=== PATIENT | male | born 1930 | race Caucasian/White ===

== ENCOUNTER 2019-08-04 10:43 | Inpatient (IN) | payer OTHER ==
[2019-08-04] MEDS ORDERED: NS 0.9% 1000 ML** 1,000 ML IV ONE ×2 (10:46→11:30)
--- NOTE | 2019-08-04 10:53 | ED ---
Neurological HPI - HPI Summary HPI Summary: This patient is an 88 year old male brought in by EMS presenting to [facility] with a chief complaint of possible stroke. He was with his niece when she noticed he was having garbled, incomprehensible speech, per EMS. They also report a right- sided facial droop. His last known normal is 30 minutes FITTER UP. Mychal richards called at 1038, patient arrived to ED at 1044, seen by provider at 1045, patient taken to CT at 1046. Per EMS, Pt was in AFIB but it is not known if he is currently on blood thinners or if he has a Hx of AFIB. This medical record is a level 5 caveat due to altered mental status. - History of Current Complaint Stated Complaint: MYCHAL AVALOS Time Seen by Provider: 08/04/19 10:46 Hx Obtained From: EMS Hx From Patient Unobtainable Due To: Altered Mental Status Onset/Duration: Started minutes ago Character: Impaired Speech - Allergy/Home Medications Allergies/Adverse Reactions: Allergies Allergy/AdvReac Type Severity Reaction Status Date / Time No Known Allergies Allergy Verified 08/04/19 11:36 PMH/Surg Hx/FS Hx/Imm Hx - Additional Comments History Additional Comments: This PMH is a level 5 caveat due to altered mental status. Review of Systems - ROS Summary Review of Systems Summary: This ROS is level 5 caveat due to altered mental status Neurological: Other - Right-sided facial droop Positive: Slurred Speech All Other Systems Reviewed And Are Negative: No Physical Exam - Summary Physical Exam Summary: Constitutional: Well-developed, Well-nourished, Alert. (-) Distressed Skin: Warm, Dry HENT: Normocephalic; Atraumatic Eyes: Conjunctiva normal Neck: Musculoskeletal ROM normal neck. (-) JVD, (-) Stridor, (-) Tracheal deviation Cardio: Rhythm irregularly irregular Heart sounds normal; Intact distal pulses; The pedal pulses are 2+ and symmetric. Radial pulses are 2+ and symmetric. (-) Murmur Pulmonary/Chest wall: Effort normal. (-) Respiratory distress, (-) Wheezes, (-) Rales Abd: Soft. (-) Tenderness, (-) Distension, (-) Guarding, (-) Rebound Musculoskeletal: (-) Edema Lymph: (-) Cervical adenopathy Neuro: Alert. Strength normal, Cranial nerves II-XII are grossly intact. (-) Dysmetria, (-) Nystagmus, (-) Ataxia by finger to nose testing. Psych: Mood and affect Normal Triage Information Reviewed: Yes Vital Signs On Initial Exam: Temp Pulse Resp BP Pulse Ox 98.1 F 52 16 181/87 97 08/04/19 11:00 08/04/19 11:00 08/04/19 11:00 08/04/19 11:00 08/04/19 11:00 Vital Signs Reviewed: Yes Completion Of Physical Exam Limited Due To: Altered Mental Status Procedures - Sedation Patient Received Moderate/Deep Sedation with Procedure: No Diagnostics - Laboratory Result Diagrams: 08/04/19 10:59 08/04/19 10:59 Lab Statement: Any lab studies that have been ordered have been reviewed, and results considered in the medical decision making process. - Radiology CXR Radiology Interpretation Completed By: Radiologist Summary of Radiographic Findings: Cardiomegaly. No evidence for acute findings. ED Provider has reviewed this report. - CT Brain CT Interpretation Completed By: Radiologist Summary of CT Findings: Acute left frontal lobe infarct with suspected hyperdense M2 segment of the left MCA. Attention on CTA. No hemmorhage of mass effect. ED Provider has reviewed this report. Head CTA CT Interpretation Completed By: Radiologist Summary of CT Findings: 1. Acute left frontal lobe infarct with no hemorrhage or mass effect. 2. Thromboembolic occlusion of a prominent M2 branch fo the left MCA as above. 3. Either adherent thrombus or soft plaque results in 50% senosis in the cavernous. ED Provider has reviewed this report. - EKG 1109 Cardiac Rate: Bradycardia - 44 BPM EKG Rhythm: Atrial Fibrillation Summary of EKG Findings: LBBB. Dr. Vick has reviewed and interpreted this EKG. NIH Scale - NIH Scale Level of Consciousness: Alert/Keenly Responsive Ask Patient the Month and His/Her Age: Neither Correct/Aphasic Ask Pt to Open/Close Eyes and Delivery Table Feeder/Release Non-Paretic Hand: Both Correctly Best Gaze (Only Horizontal Eye Movement): Normal Visual Field Testing: No Visual Loss Facial Paresis-Pt to Smile & Close Eyes or Grimace Symmetry: Partial Paralysis Motor Function - Right Arm: No Drift-Holds 10 Seconds Motor Function - Left Arm: No Drift-Holds 10 Seconds Motor Function - Right Leg: No Drift-Holds 10 Seconds Motor Function - Left Leg: No Drift-Holds 10 Seconds Limb Ataxia-Must be out of Proportion to Weakness Present: Absent Sensory (Use Pinprick to Test Arms/Legs/Trunk/Face): Normal Best Language (Describe Picture, Name Items): Severe Aphasia Dysarthria (Read Several Words): Normal Extinction and Inattention: No Abnormality Total Score: 6 Course/Dx - Course Course Of Treatment: This patient is an 88 year old male brought in by EMS presenting to [facility] with a chief complaint of possible stroke. His last known normal is 30 minutes FITTER UP. Mychal richards called at 1038, patient arrived to ED at 1044, seen by provider at 1045, patient taken to CT at 1046. Neurologist Dr. Fernandez saw the patient in the ED at 10:55 and recommended TPA if renal functions are within normal limits and if it can be proven the patient is not taking anticoagulants. His son arrived in the ED and confirmed he does not take anticoagulants. Brain CT reveals acute left frontal lobe infarct with suspected hyperdense M2 segment of the left MCA. Attention on CTA. No hemmorhage of mass effect. Bloodwork is unremarkable except MCH is 1.1 H. Coagulation reveals INR 1.28 H, APTT 40.3 H. Chemistry shows BUN 34 H, Creatinine 1.43 H, BUN/ Creatinine Ratio 23.8 H, Glucose 110 H, Alkaline Phosphatase 109 H. EKG at 1109 showed AFIB with LBBB at 44 BPM. NIH score of 6. TPA was administered. 1. Acute left frontal lobe infarct with no hemorrhage or mass effect. 2. Thromboembolic occlusion of a prominent M2 branch fo the left MCA as above. 3. Either adherent thrombus or soft plaque results in 50% senosis in the cavernous. Dr. Davies, Hospitalist, accepted the patient for admission to the ICU. This plan was discussed with the patient and he was agreeable with this plan. - Diagnoses Provider Diagnoses: Acute CVA (cerebrovascular accident), Afib Discharge ED - Sign-Out/Discharge Documenting (check all that apply): Patient Departure - Admission - Discharge Plan Condition: Stable Disposition: ADMITTED TO [facility] - Attestation Statements Document Initiated by Hector: Yes Documenting Scribe: Genaro Dong Provider For Whom Hector is Documenting (Include Credential): Pedro Vick, Scribe Attestation: IGenaro, scribed for Pedro Vick, DO on 08/04/19 at 1238. Status of Scribe Document: Ready
[2019-08-04] MEDS ORDERED: Alteplase* 100 MG VIAL ONE (10:56)
[2019-08-04 11:09] LABS: ABS Basophils 0.1 10^3/ul (0-0.2); ABS Eosinophils 0.2 10^3/ul (0-0.6); ABS Lymphocytes 1.1 10^3/ul (1.0-4.8); ABS Monocytes 1.1 10^3/ul (0-0.8); ABS Neutrophils 4.4 10^3/ul (1.5-7.7); Eosinophil % 2.8 %; Hematocrit 42 % (42-52); Lymphocyte % 16.4 %; Mean Corpuscular HGB Conc 33 g/dL (31-36); Mean Corpuscular Hemoglobin 28 pg (27-31); Mean Corpuscular Volume 85 fL (80-94); Mean Platelet Volume 7.9 fL (7.4-10.4); Nucleated Red Blood Cells % 0.1; Platelet Count 169 10^3/uL (150-450); Red Blood Count 4.95 10^6 /uL (4.18-5.48); Red Cell Distribution Width 15 % (10-15); White Blood Count 6.9 10^3/uL (3.5-10.8)
[2019-08-04 11:18] LABS: INR 1.28 (0.82-1.09)
[2019-08-04 11:19] LABS: Activated Partial Thrombo Time 40.3 seconds (26.0-38.0)
[2019-08-04] MEDS ORDERED: ALTEPLASE IV ONE ×2 (11:22)
[2019-08-04 11:23] LABS: Albumin 3.7 g/dL (3.2-5.2); Albumin/Globulin Ratio 1.2 (1-3); BUN/Creatinine Ratio 23.8 (8-20); Calcium 9.4 mg/dL (8.6-10.3); EGFR African American 56.3 (>60); EGFR Non-African American 46.6 (>60); HDL Cholesterol 23.8 mg/dL; Potassium 4.6 mmol/L (3.5-5.0); Total Bilirubin 0.6 mg/dL (0.2-1.0); Total Protein 6.7 g/dL (6.4-8.9)
[2019-08-04 11:24] LABS: Troponin I 0.01 ng/mL (<0.03)
[2019-08-04] MEDS ORDERED: Iodixanol* (CONTRAST) 320 MG/ML 100 ML SDV IV ONE (11:48)
--- NOTE | 2019-08-04 12:45 | CONS ---
NEUROLOGY CONSULTATION NOTE: DATE OF CONSULT: 08/04/19 LOCATION: He is in the emergency room. REFERRING PROVIDER: Dr. Pedro Vick. CHIEF COMPLAINT: Unresponsiveness, code dean. HISTORY OF PRESENT ILLNESS: Radna Sesay is an 88-year-old right-handed man who was visiting his "[id number]" at about 10:10 this morning when he became unresponsive. The history is from the him tech who brought him in. His last known well was, therefore, 10:10 this morning. He was found by the him tech upon arrival to be mute. They saw evidence of a right facial droop. He was brought in to the emergency room and I first saw him in the CT scanning room. He had evidence of a mild flattening of the right nasolabial fold and his eyes would open and he would follow some commands, but he would not produce any words whatsoever nor attempt to speak. He had a CT scan of the brain, which I reviewed personally and which was interpreted by Dr. Newsome as showing an acute left frontal infarct with suspected hyperdense sign in the left M2 segment of the middle cerebral artery. There is no hemorrhage or mass effect. I reviewed the images and I agree. He was noted to be in atrial fibrillation by the him tech when they first found him and he has continued to be in atrial fibrillation here in the emergency room. We do not have any medical records, but there are several family members present and I also spoke with the [id number] who is a nurse on the phone. He gets all of his care at the [facility] in [place]. According to his son, there is no prior history of stroke. He does have a history of a coronary stent and he is apparently on an antihypertensive that no one knows the name of. His family says he tends to determine whether or not to take medication on his own and tends to minimize medications. They think that he is probably only taking his antihypertensive medication. The patient does not believe he has ever been diagnosed as having atrial fibrillation nor that he has ever been on anticoagulants. The patient later in the evaluation was able to nod negatively to one of his family members, a nurse, that he is not taking any blood thinners. There is no history of hemorrhaging or head trauma according to my question of his son. There is no history of epilepsy. PHYSICAL EXAM: On physical examination, he is in atrial fibrillation with heart rates generally running in the 50s, but sometimes as low as the 40s. His blood pressure was fluctuating between 180 and 190 systolic over 80 to 90 diastolic during his emergency room evaluation. On neurological exam, he was mute initially, but ultimately with repeated attempts, he would produce single-word answers and tend to perseverate. He would follow commands reliably. NIH Stroke Score is 9. He scored 1 on level of consciousness, 2 on level of consciousness questions, 1 on facial palsy, 3 on best language, 2 on dysarthria. Plantar responses were flexor bilaterally. He responded to nasal tickle weakly bilaterally. He responded to visual threat bilaterally, but I could not get him to answer questions for double simultaneous stimulation or other visual field testing besides visual threat. DIAGNOSTIC STUDIES/LAB DATA: Laboratory data back so far includes a normal CBC including platelet count 169,000, INR is 1.28, and PTT is borderline elevated at 40.3. These values came back after a tPA order was put in. His chemistry is notable for a BUN of 34 and a creatinine of 1.43. There are no prior evaluations to compare it to. Chemistry profile was otherwise normal other than a presumably nonfasting glucose of 110. Cholesterol is 134 and LDL 72. IMPRESSION AND PLAN: Impression is that of a left hemisphere middle cerebral artery cerebrovascular event. He is mute and has an NIH score of 9 to the best of my assessment. He is reportedly not on any anticoagulants, but he does have a mildly elevated INR for unclear reasons. TPA is currently infusing. A CT angiogram of the brain has been ordered next. Depending upon the results, we will consult with the [facility]'s Stroke Team if it looks like he might be an endovascular candidate. The risks and benefits of tPA were discussed with his son including the risk of serious bleeding and the potential benefit of improved outcome from ischemic stroke. I will continue to follow him along with you. [id number]/[facility] #: [id number] ADDENDUM TO NEUROLOGY CONSULTATION: Since last dictation, Mr. Sesay's language is considerably improved. In fact, he was speaking to his niece on the phone when I went in to double check on him. His speech is still dysarthric and he still has some mild aphasia. He no longer has facial weakness. I estimate his NIH stroke scale as 1. I reviewed his CT angiogram in clinical update on exam with [facility]. They felt that with his significant clinical improvement and the findings on a CT angiogram showing perhaps distal M2 lesions that he is not an endovascular candidate. I discussed the update with Dr. Vick, who we contact the hospitalist service for admission to the intensive care unit to follow the protocol for stroke patients who have received tPA. He should not receive antiplatelet therapy or other anticoagulants for 24 hours from his tPA and not until a followup CT scan at the 24 hour marcellus is performed and is free of hemorrhage or other contraindications to anticoagulation. He will need an MRI scan of the brain as well as telemetry, an echocardiogram, and probably Cardiology consultation. [id number]/[facility] #: [id number] SAMI
--- NOTE | 2019-08-04 13:27 | CONS ---
NEUROLOGY CONSULTATION: ADDENDUM: Since last dictation, Mr. Sesay's language is considerably improved. In fact, he was speaking to his niece on the phone when I went in to double check on him. His speech is still dysarthric and he still has some mild aphasia. He no longer has facial weakness. I estimate his NIH stroke scale as 1. I reviewed his CT angiogram in clinical update on exam with [facility]. They felt that with his significant clinical improvement and the findings on a CT angiogram showing perhaps distal M2 lesions that he is not an endovascular candidate. I discussed the update with Dr. Vick, who we contact the hospitalist service for admission to the intensive care unit to follow the protocol for stroke patients who have received tPA. He should not receive antiplatelet therapy or other anticoagulants for 24 hours from his tPA and not until a followup CT scan at the 24 hour marcellus is performed and is free of hemorrhage or other contraindications to anticoagulation. He will need an MRI scan of the brain as well as telemetry, an echocardiogram, and probably Cardiology consultation. [id number]/[facility] #: [id number] SAMI
[2019-08-04 13:55] LABS: Urine Appearance Cloudy; Urine Bilirubin Negative (Negative); Urine Blood Negative (Negative); Urine Color Yellow; Urine Glucose Negative (Negative); Urine Ketones Negative (Negative); Urine Nitrite Negative (Negative); Urine Protein 2+(100 mg/dL) (Negative); Urine Urobilinogen Negative (Negative)
[2019-08-04 14:04] LABS: Urine Bacteria 1+ (Absent); Urine Red Blood Cell Absent (Absent); Urine White Blood Cell 3+(>20/hpf) (Absent)
[2019-08-04] MEDS: niCARdipine 0.1MG/ML IVPREMIX* 20 MG/200 ML BAG IV SCH ×3 (14:35→22:18)
[2019-08-04] MEDS ORDERED: Colchicine* 0.6 MG TAB PO SCH (15:00)
--- NOTE | 2019-08-04 16:02 | CONSULT ---
Subjective Date of Service: 08/04/19 Interval History: Admission Date: 08/04/19 Consult date 08/04/2019 Service: Nuclear Medicine Technologist CC: Change in speech Reason for consult: Atrial fibrillation, ischemic stroke HISTORY OF PRESENT ILLNESS: Mr. Sesay is an 88-year-old man with history as below who gets his healthcare through the [facility] system. He ambulates with a walker due to gait imbalance but has no chest discomfort, dyspnea or syncope. He was diagnosed with atrial fibrillation over a year ago and declined anticoagulation at that time. He is now admitted with garbled speech and right sided facial droop and was given TPA. He is now in the ICU. He is hard of hearing but we are otherwise able to have a conversation. Family members including Elizabeth who is a [employer] are at bedside. PAST MEDICAL HISTORY: coronary artery disease, PR, PCI 3 years ago [address] [facility] ? ramus branch hypertension hyperlipidemia, aortic stenosis LBBB uncertain duration PAST SURGICAL HISTORY: trigger finger release PCI 2016 FAMILY HISTORY: Noncontributory SOCIAL HISTORY: . lives alone. son and [id number] close by (they are present) No tobacco No EtOH. No illicit drug use. His healthcare proxy is Bruce Sesay , his son. Medications Active Medications: Amlodipine Besylate (Norvasc Tab*) 10 mg PO DAILY [facility] Atorvastatin Calcium (Lipitor*) 40 mg PO 1700 NADIA Carvedilol (Coreg Tab*) 25 mg PO BID [facility] Colchicine (Colcrys*) 1.2 mg PO ONCE [facility] Nicardipine/Sodium Chloride (Cardene 0.1mg/Ml Ivpremix*) 20 mg in 200 mls @ 0 mls/hr IV PER RATE [facility]; Protocol Last Admin: 08/04/19 14:35 Dose: 50 mls/hr Home Medications: Amlodipine Besylate [Norvasc] 10 mg PO DAILY 08/04/19 [History Confirmed ] Aspirin EC TAB* [Ecotrin EC Low Dose 81 MG*] 81 mg PO DAILY 08/04/19 [History Confirmed 08/04/19] Carvedilol TAB* [Coreg TAB*] 25 mg PO BID 08/04/19 [History Confirmed 08/04/19] Colchicine* [Colcrys*] 1.2 mg PO ONCE 08/04/19 [History Confirmed 08/04/19] Minerin Cream* [Eucerin Cream*] 1 applic TOPICAL DAILY 08/04/19 [History Confirmed 08/04/19] Vit C/E/Zn/Coppr/Lutein/Zeaxan [Preservision Areds 2 Softgel] 1 each PO BID [History Confirmed 08/04/19] Review of Systems - Measurements Intake and Output: Intake and Output Last 24 Hours 08/02/19 08/03/19 08/04/19 08/05/19 06:59 06:59 06:59 06:59 Intake Total 587.6 Balance 587.6 Weight 215 lb Intake: IV Fluids 587.6 - Review of Systems Constitutional Symptoms: Negative: Weight Gain, Weight Loss Dermatology: Negative: Rash, Skin Lesions, Skin Lumps HEENT: Negative: Change in Hearing, Vertigo Eyes: Negative: Change in Vision, Double Vision Thyroid: Negative: Palpitations, Weight Loss, Weight Gain Pulmonary: Negative: Cough, Sputum, Hemoptysis, Respiratory Distress Cardiology: Negative: Chest Pain, Shortness of Breath, Palpitations, Swelling of Ankles, Edema, Syncope, Claudication Gastroenterology: Negative: Blood in Stools, Haematemesis, Melena Genital - Urinary: Negative: Dysuria, Hematuria Musculoskeletal: Negative: Joint Pain, Joint Stiffness Endocrinology: Negative: Polydipsia, Polyuria Hematologic/Lymphatic: Positive: Use of Antiplatelet Drugs Negative: Use of Anticoagulant Neurology: Positive: Hx of Stroke\TIA Psychiatry: Negative: Unusual Anxiety, Suicidal Ideation Allergic/Immunologic: Negative: Hx HIV, Immunocompromise Review of Systems Statement: All other review of systems negative, unless stated above. Objective Vital Signs: Temp Pulse Resp BP Pulse Ox 97.2 F 55 18 154/71 95 08/04/19 14:22 08/04/19 15:16 08/04/19 15:16 08/04/19 15:16 08/04/19 15:16 Oxygen Devices in Use Now: None Appearance: nad, pleasant Ears/Nose/Mouth/Throat: Clear Oropharnyx Neck: NL Appearance and Movements; NL JVP, Trachea Midline Respiratory: Symmetrical Chest Expansion and Respiratory Effort, Clear to Auscultation Cardiovascular: - - irregularly irregular, 3/6 systolic murmur with soft singular s2 Abdominal: NL Sounds; No Tenderness; No Distention Extremities: No Edema Skin: No Rash or Ulcers Neurological: Alert and Oriented x 3 Laboratory Results: 08/04/19 10:59 08/04/19 10:59 INR (Anticoag Therapy) 1.28 (0.82-1.09) H 08/04/19 10:59 APTT 40.3 seconds (26.0-38.0) H 08/04/19 10:59 Total Bilirubin 0.60 mg/dL (0.2-1.0) 08/04/19 10:59 AST 14 U/L (13-39) 08/04/19 10:59 ALT 12 U/L (7-52) 08/04/19 10:59 Alkaline Phosphatase 109 U/L (34-104) H 08/04/19 10:59 Total Protein 6.7 g/dL (6.4-8.9) 08/04/19 10:59 Albumin 3.7 g/dL (3.2-5.2) 08/04/19 10:59 Globulin 3.0 g/dL (2-4) 08/04/19 10:59 Albumin/Globulin Ratio 1.2 (1-3) 08/04/19 10:59 Triglycerides 189 mg/dL 08/04/19 10:59 Cholesterol 134 mg/dL 08/04/19 10:59 LDL Cholesterol 72 mg/dL 08/04/19 10:59 HDL Cholesterol 23.8 mg/dL 08/04/19 10:59 08/04/19 10:59 Troponin I 0.01 Diagnostic Imaging: Exam Date: 08/04/19 CTA HEAD/NECK IMPRESSION: 1. Acute left frontal lobe infarct with no hemorrhage or mass effect. 2. Thromboembolic occlusion of a proximal M2 branch of the left MCA as above 3. Either adherent thrombus or soft plaque results in 50% stenosis in the cavernous segment of the right ICA. The embolic potential of this finding is unclear. 4. Intracranially extra cranial atherosclerotic disease. Exam Date: 08/04/19 MRI BRAIN W/O IMPRESSION: 1. Late acute to early subacute left MCA infarct burden as above. No mass effect or associated hemorrhage. 2. Mild chronic small vessel ischemic disease is likely. 3. Mild cerebral volume loss. Transthoracic Echocardiogram Study Date: 08/04/2019 Conclusions Summary: - Left ventricle: The cavity size is normal. Wall thickness is mildly to moderately increased. Systolic function is normal. The estimated ejection fraction is 55-60%. Wall motion is normal; there are no regional wall motion abnormalities. - Right ventricle: The cavity size is normal. Systolic function is normal. Systolic pressure is mildly increased. - Ventricular septum: The interventricular septum appears dyssynchronous consistent with left bundle branch block. - Aortic valve: The peak systolic velocity is 3.9 m/sec. Patient is in atrial fibrillation at time of study and velocity/gradient profiles are the highest and not average obtained. The mean systolic gradient is 37.0 mm Hg. The valve area by the velocity-time integral method is 0.57 cm^2. EKG Data: ekg on admission afib 44 bpm, lbbb Assessment/Plan 1. Acute ischemic large vessel MCA CVA - s/p TPA - while on aspirin - high likely secondary to # 2 2. chronic atrial fibrillation - rate controlled with slow rates - not on anticoagulation 3. CAD/PR/PCI 4. Aortic stenosis - asymptomatic, LVEF normal 5. LBBB - Decrease coreg from 25 to 12.5 mg po bid given slow heart rates (ordered) - Once ok from a neurologic standpoint, would start jail anticoagulation ( such as eliquis 5 mg po bid if creatinine stays stable or improves) I would use this in addition to aspirin (at least in the short term) unless intracranial bleeding risk would felt excessively high with this combination - Discussed with Yuliya Shields NP and [facility]. Thank you for allowing me to participate in the cardiovascular care of this patient. Please do not hesitate to contact me with questions or concerns.
--- NOTE | 2019-08-04 16:38 | HP ---
Amended report to enter cosigning physician. CC: SEAN; Dr. Suresh Davies; Dr. Michael Fernandez, Neurology; Dr. Anival Davies, Cardiology* ADMISSION HISTORY AND PHYSICAL: DATE OF ADMISSION: 08/04/19 PRIMARY CARE PROVIDER: The [facility]. ATTENDING FOR THIS ADMISSION: Dr. Suresh Davies, ICU sawmill production worker* (dictated by Jair Shields NP). CHIEF COMPLAINT: Incomprehensible speech. HISTORY OF PRESENT ILLNESS: Mr. Sesay is a very pleasant 88-year-old male patient, who was at home with his niece when she noticed that he was started having garbled speech and also some right-sided facial droop. His last known normal was 30 minutes prior to arrival in the emergency department. He was brought in by EMS services. A code dean was called at 10:38 this morning. The patient arrived in the emergency department at 10:44. The patient was taken to CAT scan at 10:46 a.m. He was noted to be within a window for tPA administration. He was seen by Dr. Fernandez in the ED. His NIH Stroke Scale at that time was a total score of 6. He was noted to be in atrial fibrillation, which was new. His CT did appear to show an acute left frontal lobe infarct with no hemorrhage or mass effect and then his CTA showed a thromboembolic occlusion of the prominent M2 branch of the left MCA. The patient was administered tPA in the emergency department. His primary symptom of dysarthria did start to subside. The patient was able to start to communicate more clearly. The sawmill production worker service was contacted for admission as the patient was post tPA administration. PAST MEDICAL HISTORY: Significant for coronary artery disease, hypertension, hyperlipidemia, and myocardial infarction. PAST SURGICAL HISTORY: Significant for trigger finger release and coronary artery stenting in 2017 to the ramus, which was performed at [facility] in [place]. HOME MEDICATIONS: Include: 1. Amlodipine 10 mg p.o. daily. 2. Aspirin 81 mg daily. 3. Carvedilol 25 mg p.o. b.i.d. 4. Colchicine 1.2 mg p.o. once daily. 5. Eucerin cream topical daily. 6. PreserVision AREDS 2 soft gels 1 tablet p.o. 2 times a day. 7. Per the patient's granddaughter, he is also supposed to be taking Lipitor daily, but he has been noncompliant with this medication. FAMILY HISTORY: No noted family history as reported by the patient's granddaughter. The patient is difficult to communicate with at this time, but he is not reporting any history. SOCIAL HISTORY: The patient is . He lives alone. He has his son and [id number] very close by. He denies history of smoking. No EtOH. No illicit drug use. His healthcare proxy is Bruce Sesay, his son. REVIEW OF SYSTEMS: The patient denies any headache. No blurry vision. He is obviously frustrated with his word searching, but he denies any shortness of breath. No chest pain. No nausea, no vomiting. No muscle weakness or general fatigue. No arthralgias or myalgias, and no further constitutional complaints. PHYSICAL EXAMINATION GENERAL: Reveals a well-nourished older gentleman, in no acute distress. VITAL SIGNS: Blood pressure 175/88, heart rate 53, respiratory rate 19, O2 saturation 97% on room air with a temperature of 97.2. HEENT: The patient is atraumatic, normocephalic. PERRLA. Nonicteric sclerae. Extraocular movements are intact. Oral mucosa is somewhat dry. He wears dentures. Tongue is midline. NECK: Supple, nontender. No JVD noted. No thyromegaly appreciated. LUNGS: Clear bilaterally to auscultation with no wheezing, rhonchi, or rales. CARDIOVASCULAR: S1, S2 present. Rate is irregular. There is a holosystolic murmur noted, grade 3/6. He is bradycardic. ABDOMEN: Soft, nontender, nondistended. Positive bowel sounds in all 4 quadrants. : Deferred. MUSCULOSKELETAL: There is no clubbing, no cyanosis, and no edema. He has +2 distal pulses palpable. NEUROLOGIC: He is dysarthric and word searching. He is otherwise able to follow commands. Gross motor and sensation are intact. PSYCHIATRIC: Cooperative and appropriate. The patient is alert and oriented to person and place. He is not able to describe the events leading up to his hospitalization; however, there is some amnesia of the events of the stroke. SKIN: Warm, dry, and intact. DIAGNOSTIC STUDIES/LAB DATA: WBCs 6.9, RBCs 4.95, hemoglobin 14, hematocrit 42 , platelets 169. Sodium 139, potassium 4.6, chloride 108, CO2 of 24, anion gap 7, BUN 34, creatinine 1.43, GFR 46.6, BUN/creatinine ratio 23.8, glucose 110, lactic acid 1.2, calcium 9.4. Total bilirubin 0.60, AST 14, ALT 12, alk phos 109. Troponin 0.01. Total protein 6.7, albumin 3.7, globulin 3.0, albumin/ globulin ratio 1.2. Triglycerides 189, total cholesterol 134, LDL cholesterol 72, HDL cholesterol 23.8. Urinalysis shows 2+ protein, 2+ leukocyte esterase, 3 + wbc's, 1+ bacteria, negative for glucose. Imaging: Initial CT of the brain at 10:46 this morning shows acute left frontal lobe infarct with a suspected hypodense M2 segment of the left MCA. The CTA of the head at 11:07 shows acute left frontal lobe infarct with no hemorrhage or mass effect noted, thromboembolic occlusion of the proximal M2 branch of the left MCA, and either adhered thrombus or soft plaque resulting in 50% stenosis in the cavernous segment of the right ICA. The embolic potential of this finding is unclear. Intracranially extracranial atherosclerotic disease. Chest x-ray at 10:46 this morning shows some cardiomegaly and no evidence for other acute pulmonary findings. IMPRESSION AND PLAN: Mr. Sesay is an 88-year-old male patient who presented with a sudden onset of dysarthria this morning, found to have acute cerebrovascular accident, will be admitted to the ICU post tPA administration. 1. Acute left frontal lobe infarct and thromboembolic occlusion of the proximal M2 branch of the left middle cerebral artery. The patient again has received tPA in the emergency department. He will be monitored for 24 hours in the ICU. He has already been seen by Dr. Fernandez of neurology service. We will obtain an MRI of the brain and an echocardiogram with bubble study of the heart as this does appear to be a thromboembolic event given his new atrial fibrillation, which is undiagnosed. The patient has not been on anticoagulation. He has also been off of his statin and does appear to have atherosclerotic disease. We will hold off on any aspirin or anticoagulation until he is out of the window after his tPA administration. He is high risk for bleed. We will repeat CT scan of the head in 24 hours. In the meantime, we will continue with neurological checks per protocol. I will start him on Lipitor 40 mg daily to start this evening. Continue him on telemetry and continue supportive care. Swallow evaluation study has been placed. For now, we will keep him n.p.o. 2. Hypertension with accelerated hypertension. He has been placed on nicardipine drip. This will be titrated. His blood pressures are in the systolic 170s to 180s. We will place him on nicardipine and restart his home meds tomorrow in anticipation of weaning him down of the nicardipine drip when blood pressures are more stable. 3. Hyperlipidemia. Per the patient's granddaughter, he was not taking his Lipitor. He stated he thought he was allergic to it, but it was likely more that he was having some cramping reaction to it. It will be important for him to stay on statin therapy. I started him on moderate to high dose statin therapy with 40 of Lipitor to start this evening. 4. History of gout. He will be restarted on his colchicine. 5. History of arthritis. This appears to be stable. He can have Tylenol as needed. 6. History of coronary artery disease and stenting. The patient is on carvedilol. This will be continued. We will withhold his aspirin for now. I have consulted Cardiology. Dr. Anival Davies will be seeing the patient. The atrial fibrillation does appear to be new. As stated above, we will be getting an echocardiogram with bubble study to assess his valves. He does have a significant murmur. It is unclear to the degree of which his murmur has progressed from 2017 until now, so this will be noted once we obtain his echocardiogram. 7. For DVT prophylaxis, the patient is high risk for bleeding, but he is also high risk for deep venous thrombosis, he will be placed on SCDs. 8. Code status: Initially, the patient was noted to be a full code; however, it was confirmed with the patient and with his family that he wishes to be a DNR and DNI. The rest of the patient's course will be determined by further diagnostics, laboratories, and any other input from other providers as warranted during this admission. TIME SPENT: Critical care time spent 75 minutes on admission planning. This plan of care has been discussed with Dr. Suresh Davies, the ICU sawmill production worker on this case, and he is in agreement with this plan of care. JAIR SHIELDS, BARGEMAN [id number]/[facility] #: [id number] [facility]
--- NOTE | 2019-08-04 16:49 | ECHO ---
*[facility]* [place] [address] Fax #: [phone] Transthoracic Echocardiogram Patient: Randa Sesay : 1930 Study Date: 08/04/2019 Age: 88 Gender: M HR: 56 bpm Height: 71 in /180.3 cm BSA: 2.17 m^2 Weight: 214.6 lb /97.5 kg BMI: 30 kg/m^2 *Athlete Manager: * Tyra Heredia [facility] *Referring Physician: * Yuliya Shields *Reading Physician: * Anival Davies MD Indications: CVA. History: Risk factors: Hypertension. Labs, prior tests, procedures, and surgery: Catheterization. There was a stenosis which was treated with a stent. Conclusions Summary: - Left ventricle: The cavity size is normal. Wall thickness is mildly to moderately increased. Systolic function is normal. The estimated ejection fraction is 55-60%. Wall motion is normal; there are no regional wall motion abnormalities. - Right ventricle: The cavity size is normal. Systolic function is normal. Systolic pressure is mildly increased. - Ventricular septum: The interventricular septum appears dyssynchronous consistent with left bundle branch block. - Aortic valve: The peak systolic velocity is 3.9 m/sec. Patient is in atrial fibrillation at time of study and velocity/gradient profiles are the highest and not average obtained. The mean systolic gradient is 37.0 mm Hg. The valve area by the velocity-time integral method is 0.57 cm^2. - Ascending aorta: The ascending aorta is mildly dilated at 4.0 cm Recommendations: None prior for comparison at time of interpretation Study data: Transthoracic echocardiogram. Procedure: Transthoracic echocardiography was performed. Image quality was good. A bubble study was performed. Complete 2D, spectral Doppler, and color flow Doppler. Location: ICU Patient status: Inpatient. Patient room number: ICU-09. Rhythm: Atrial fibrillation. Findings Left ventricle: The cavity size is normal. Wall thickness is mildly to moderately increased. Systolic function is normal. The estimated ejection fraction is 55-60%. Wall motion is normal; there are no regional wall motion abnormalities. Left ventricular diastolic function parameters are indeterminate. Right ventricle: The cavity size is normal. Systolic function is normal. Systolic pressure is mildly increased. Ventricular septum: The interventricular septum appears dyssynchronous consistent with left bundle branch block. Left atrium: The atrium is moderately dilated. Right atrium: The atrium is moderately dilated. Atrial septum: A PFO is not demonstrated by color Doppler or agitated saline contrast. Negative Bubble Study. Images 111 and 112. Mitral valve: The Mitral valve annulus appears mildly calcified. The leaflets are mildly thickened. There is no evidence of stenosis. There is mild regurgitation. Aortic valve: The valve is trileaflet. The leaflets are moderately calcified. Valve mobility is restricted. The findings are consistent with severe stenosis. There is trace regurgitation. Tricuspid valve: The leaflets are normal thickness. There is no evidence of stenosis. There is moderate regurgitation. Pulmonic valve: The leaflets are normal thickness. There is no evidence of stenosis. There is trace regurgitation. Aorta: Aortic root: The aortic root is mildly dilated. Ascending aorta: The ascending aorta is mildly dilated at 4.0 cm Aortic arch: The aortic arch is poorly visualized. Pericardium: There is no significant pericardial effusion. Pulmonary arteries: The main pulmonary artery is normal-sized. Systolic pressure is mildly increased. Systemic veins: Poorly visualized. Inferior vena cava: The vessel is normal in size. There is (>= 50%) respiratory change in the IVC dimension. Measurements Left ventricle Value Ref Aortic valve Value Ref DHEERAJ, LAX 5.4 cm 4.2 - 5.8 Jacquelyn diam, ED 2.1 cm ----- ESD, LAX (H) 4.5 cm 2.5 - 4.0 Peak v, S 3.9 m/sec ----- FS, LAX (L) 18 % 25 - 43 VTI, S 98.0 cm ----- PW, ED, LAX (H) 1.4 cm 0.6 - 1.0 Mean grad, S 37.0 mm Hg ----- FS (L) 18 % 25 - 43 Peak grad, S 60.8 mm Hg ----- PW, ED (H) 1.4 cm 0.6 - 1.0 LVOT/AV, VTI ratio 0.18 ----- E', lat jacquelyn, TDI (L) 7.7 cm/sec >=10.0 SHAD, VTI 0.57 cm^2 --- -- E/e', lat jacquelyn, 15 SHAD, Vmax 0.58 cm^2 ----- TDI E', med jacquelyn, TDI (L) 6.2 cm/sec >=7.0 Mitral valve Value Ref E/e', med jacquelyn, 19 Peak E 1.19 m/sec ----- TDI Decel time 191 ms ----- E', avg, TDI 7.0 cm/sec PHT 173 ms ----- E/e', avg, TDI (H) 17 <=14 Mean grad, D 1.0 mm Hg --- -- Peak grad, D 6.0 mm Hg ----- LVOT Value Ref MVA, PHT 1.4 cm^2 ----- Diam, S 2.00 cm Peak LV-LA grad S 65 mm Hg ----- Area 3.1 cm^2 MR alias velocity 0.34 m/sec ----- Peak isabela, S 0.72 m/sec MR PISA radius 0.3 cm ----- VTI, S 17.8 cm Max MR v 4.03 m/sec ----- Mean grad, S 1 mm Hg ERO, PISA 0.05 cm^2 ----- SV 58 ml MR vol, PISA 7 ml ----- SV/bsa 27 ml/m^2 MR fraction, PISA 11 % ----- Ventricular septum Value Ref Pulmonic valve Value Ref IVS, ED (H) 1.4 cm 0.6 - 1.0 Peak v, S 1.11 m/sec ----- Peak grad, S 5.0 mm Hg ----- Right ventricle Value Ref DHEERAJ, LAX 4.2 cm Tricuspid valve Value Ref DHEERAJ minor ax, A4C (H) 3.7 cm 1.9 - 3.5 TR peak v (H) 3.1 m/sec <=2.8 mid Peak RV-RA grad, S 38 mm Hg ----- Pressure, S 41 mm Hg Aortic root Value Ref Left atrium Value Ref Root diam 3.8 cm <4.3 AP dim, ES (H) 4.60 cm 3.00 - 4.00 Ascending aorta Value Ref ML dim, A4C 5.5 cm AAo AP diam, S 4.0 cm ----- SI dim, A4C 7.0 cm Vol/bsa, ES, 1-p (H) 47 ml/m^2 12 - 37 Pulmonary artery Value Ref A4C Pressure, S 36.0 mm Hg ----- Vol/bsa, ES, A/L (H) 61 ml/m^2 16 - 34 Inferior vena cava Value Ref Right atrium Value Ref Diam 1.4 cm ----- SI dim, ES (H) 6.5 cm 3.4 - 5.3 ML dim, ES, A4C (H) 4.9 cm 2.6 - 4.4 Estimated RAP 3 mm Hg Legend: (L) and (H) marcellus values outside specified reference range. Prepared and electronically signed by Anival Davies MD 08/04/2019 16:48
[2019-08-04] MEDS: Atorvastatin* 40 MG TAB PO SCH (19:09)
[2019-08-04] MEDS: Carvedilol TAB* 6.25 MG PO SCH (20:59)
[2019-08-04] MEDS ORDERED: Carvedilol TAB* 25 MG PO SCH (21:00)
[2019-08-05] MEDS: niCARdipine 0.1MG/ML IVPREMIX* 20 MG/200 ML BAG IV SCH (04:01)
[2019-08-05 05:00] LABS: Hematocrit 40 % (42-52); Hemoglobin 13.7 g/dL (14.0-18.0); Mean Corpuscular HGB Conc 34 g/dL (31-36); Mean Corpuscular Hemoglobin 29 pg (27-31); Mean Corpuscular Volume 85 fL (80-94); Mean Platelet Volume 7.8 fL (7.4-10.4); Platelet Count 173 10^3/uL (150-450); Red Blood Count 4.74 10^6 /uL (4.18-5.48); Red Cell Distribution Width 15 % (10-15); White Blood Count 8.1 10^3/uL (3.5-10.8)
[2019-08-05 05:15] LABS: BUN/Creatinine Ratio 22.6 (8-20); Calcium 9.1 mg/dL (8.6-10.3); EGFR African American 61.3 (>60); EGFR Non-African American 50.6 (>60); Potassium 4.2 mmol/L (3.5-5.0)
[2019-08-05 05:22] LABS: ABS Basophils 0.1 10^3/ul (0-0.2); ABS Eosinophils 0.3 10^3/ul (0-0.6); ABS Lymphocytes 1.3 10^3/ul (1.0-4.8); ABS Monocytes 1.7 10^3/ul (0-0.8); ABS Neutrophils 4.7 10^3/ul (1.5-7.7); Eosinophil % 4.1 %; Lymphocyte % 15.9 %
[2019-08-05] MEDS: Carvedilol TAB* 6.25 MG PO SCH ×2 (08:10→19:21)
[2019-08-05] MEDS ORDERED: amLODIPine TAB* 5 MG PO SCH (09:00)
[2019-08-05] MEDS ORDERED: Influenza VAC *QUAD* 2019-20* 0.5 ML SYRINGE IM ONE (09:00)
[2019-08-05] MEDS ORDERED: NS 0.9% 500 ML* 500 ML IV ONE (09:18)
[2019-08-05] MEDS: NS 0.9% 1000 ML** 1,000 ML IV SCH ×2 (10:30→18:23)
--- NOTE | 2019-08-05 11:51 | PN ---
NEUROLOGICAL FOLLOWUP NOTE: DATE OF VISIT: 08/05/19. PATIENT OF: Yuliya [place] Alyson NP HISTORY: This is an 88-year-old man who received tPA yesterday. His symptoms compatible with a left MCA stroke including aphasia and right facial weakness. He improved significantly according to Dr. Fernandez. According to the nurse who has spoken to his daughter who is an ICU nurse who has been with him up until last night, he is clearly improved but his speech is different from baseline. He has had no prior stroke. He has had a CTA, a distal M2 occlusion which they strongly did not feel needed to be pursued. Of note, he has a history of atrial fibrillation. He has had hypertension above 180 systolic and that has been treated. Reviewed his tests including I reviewed his MRI scan which to my eye showed acute stroke in distribution of left MCA. As described by the radiologist, there is no hemorrhage and there was more than 1 stroke but all within the distribution of his left MCA so it is most likely a clot there that broke up and caused multiple smaller strokes, but with a relatively wide distribution within that left MCA territory with some mild chronic small vessel ischemic disease. His echo showed a dilated left atrium but no clot was seen, negative PFO. Labs today showed normal CBC other than hematocrit of 40. Creatinine was 1.33 today. It was 1.43 yesterday and rest of BMP was normal other than a BUN of 30. MEDICATIONS: Include: 1. Nicardipine drip. 2. Colchicine 1.2 mg daily. 3. Coreg 12.5 b.i.d. 4. Lipitor 40 mg daily. 5. Norvasc 10 mg daily. PHYSICAL EXAMINATION: Temperature 98.3, pulse 58, respirations 19, blood pressure 164/83 and that has been maintained throughout the night going as high as upper 170s, but not higher than that since at least midnight. On exam, he is alert. He still had an aphasia. He could name elbow but not thumb. He knew he was in [place] but could not say that he was in the hospital when I gave him choices he recognized that he was in the hospital. His speech was hesitant. Comprehension was fairly good but apparently this is a change from his baseline. He had a mild right facial weakness. No pronator drift. Strength is intact in arms and legs. Chest: Clear. Cardiovascular: Irregular rate and rhythm. Abdomen was soft with positive bowel sounds. DIAGNOSTIC STUDIES/LAB DATA: Labs were as above. ASSESSMENT AND PLAN: I discussed with his hospitalist that he had a really significant stroke in his left MCA distribution. Once if his CT scan today at 24 hours out is negative for bleeding, then he should go on a full dose aspirin and this should be continued for about a week at which time he should have another CT scan and then to consider going on long-term anticoagulation for AFib and the recent stroke. I would not do that before since the risk of bleeding into this area outweigh the benefits. I would defer to the hospitalist whether to hydrate further. I would liberalize his antihypertensives, stop the drip, and hold his antihypertensives unless his systolic blood pressure goes above 180. Thank you for sharing his case. [id number]/[facility] #: [id number] [facility]
--- NOTE | 2019-08-05 16:27 | PN ---
Date of Service: 08/05/19 Critical Care Services: Patient seen and examined. Family at bedside. No acute overnight events. Patient states he thinks his speech is improving but he is still word-searching at times. Denies headache, no SOB, no chest pain, no dizziness, no fevers. 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, sensation and motor intact Fluid Balance (Past 24 Hours): I= 1327 O= 1400 Net -72.4 Intake & Output 08/03/19 08/04/19 08/05/19 08/06/19 06:59 06:59 06:59 06:59 Intake Total 1327.6 2246 Output Total 1400 300 Balance -72.4 1946 Weight 195 lb 11.2 oz Intake: IV Fluids 587.6 969 NS (0.9%) 969 Medicated IV 500 77 CC - Nicarpidine/Cardene 500 77 Oral 240 1200 Output: Urine 900 300 Sheridan 500 0 Other: Estimated Void Large Date of Last Bowel 08/05/19 Movement # Bowel Movements 1 Estimated Stool Amount Medium # Voids 1 Labs: Laboratory Results - last 24 hr 08/05/19 08/05/19 04:43 04:43 WBC 8.1 RBC 4.74 Hgb 13.7 L Hct 40 L MCV 85 MCH 29 MCHC 34 RDW 15 Plt Count 173 MPV 7.8 Neut % (Auto) 58.3 Lymph % (Auto) 15.9 [place] % (Auto) 20.5 Eos % (Auto) 4.1 Baso % (Auto) 1.2 Absolute Neuts (auto) 4.7 Absolute Lymphs (auto) 1.3 Absolute Monos (auto) 1.7 H Absolute Eos (auto) 0.3 Absolute Basos (auto) 0.1 Absolute Nucleated RBC 0.0 Nucleated RBC % 0.0 Sodium 140 Potassium 4.2 Chloride 109 Carbon Dioxide 25 Anion Gap 6 BUN 30 H Creatinine 1.33 H Est GFR ( Amer) 61.3 Est GFR (Non-Af Amer) 50.6 BUN/Creatinine Ratio 22.6 H Glucose 93 Calcium 9.1 Studies: REPEAT CT POST tPA Patient Name: RANDA LUCIO Medical Record#: [id number] Ordering Physician: Yuliya Shields [employer] Acct.#: [id number] : 1930 Age: 88 Sex: M Location: [facility] Exam Date: 08/05/191099 ADM Status: ADM IN Order Information: CT BRAIN WO Accession Number: [id number] CPT: 92477 INDICATION: 24-hour follow-up imaging in a patient received TPA for a left frontal and temporal lobe stroke. COMPARISON: MRI August 04, [address] of the brain August 04, 2019 TECHNIQUE: Contiguous axial sections of the brain were obtained from the skull base to the vertex without contrast. FINDINGS: The ventricles, cisterns and sulci mild symmetrical involutional changes. There is ill-defined cortical hypoattenuation and loss of daen-white matter differentiation at the left temporal lobe (image 18 and left frontal lobe ( image 21) that corresponds to the sites of increased signal intensity on diffusion-weighted imaging on the previous day's MR the brain. Elsewhere the dean-white matter differentiation is adequately maintained and there is no sulcal effacement. No significant focal abnormality or mass effect is present. There is no evidence for intracranial hemorrhage. No significant focal osseous abnormality is present. The visualized portion of the paranasal sinuses appear clear. The mastoid air cells are well aerated bilaterally. IMPRESSION: 1. No CT apparent acute intracranial hemorrhage. 2. Findings are consistent with subacute infarctions involving the left frontal and temporal lobes corresponding to the previous day MRI of the brain. Patient Name: RANDA LUCIO Medical Record#: [id number] Ordering Physician: Yuliya Shields NP Acct.#: [id number] : 1930 Age: 88 Sex: M Location: [facility] Exam Date: 08/04/191436 ADM Status: ADM IN Order Information: MRI BRAIN W/O Accession Number: [id number] CPT: 99506 INDICATION: Infarct status post TPA COMPARISON: There are no relevant prior studies available for comparison. TECHNIQUE: Sagittal T1, axial T1, T2, susceptibility, FLAIR and diffusion weighted images were obtained. FINDINGS: Late acute to early subacute infarcts are seen in the left insula, left frontal operculum, left posterior frontal lobe and along the left internal watershed territory. There is no associated mass effect or hemorrhage. Multiple non-specific foci of T2/FLAIR hyperintensity without mass effect are observed in the periventricular and subcortical white matter. The midline structures are preserved. The posterior fossa structures are normal. The ventricles, sulci and fissures are mildly enlarged. No extra-axial fluid collection is present. The proximal large vessel flow voids are preserved. The visualized paranasal sinuses are clear. The visualized mastoid air cells are clear. The orbits are normal. IMPRESSION: 1. Late acute to early subacute left MCA infarct burden as above. No mass effect or associated hemorrhage. 2. Mild chronic small vessel ischemic disease is likely. 3. Mild cerebral volume loss. 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 History: Risk factors: Hypertension. Labs, prior tests, procedures, and surgery: Catheterization. There was a stenosis which was treated with a stent. Conclusions Summary: - Left ventricle: The cavity size is normal. Wall thickness is mildly to moderately increased. Systolic function is normal. The estimated ejection fraction is 55-60%. Wall motion is normal; there are no regional wall motion abnormalities. - Right ventricle: The cavity size is normal. Systolic function is normal. Systolic pressure is mildly increased. - Ventricular septum: The interventricular septum appears dyssynchronous consistent with left bundle branch block. - Aortic valve: The peak systolic velocity is 3.9 m/sec. Patient is in atrial fibrillation at time of study and velocity/gradient profiles are the highest and not average obtained. The mean systolic gradient is 37.0 mm Hg. The valve area by the velocity-time integral method is 0.57 cm^2. - Ascending aorta: The ascending aorta is mildly dilated at 4.0 cm Recommendations: None prior for comparison at time of interpretation Nutrition: Heart healthy as tolerated Impression: This is an 88 year old male with history of CAD/stenting, HTN and HLP that presented to the ED with complaints of slurred speech: Diagnoses: 1. CVA, left MCA territory 2. HTN 3. HLP 4. eColi UTI 5. TONY Plan: Neurologic - MRI as above, left MCA territory infarct 2/2 thromboembolic event - afib - s/p tPA with improvement in dysarthria, NIHSS 6 to 1 - Plan for PT/OT and Speech - Goal SBP ~150 to keep cerebral perfusion, off nicardipine, home BP meds restarted today but should be held if normotensive - Repeat CT today with no bleeding - Continue lipitor 40mg daily - No bleeding on CT, start full dose aspirin x 1 week then drop to baby aspirin daily Cardiovascular - Rate controlled afib but has been bradycardic - Decreased coreg as per cardiology - Plan for eliquis 5mg BID in a week when clear by neurosurgery to start AC - Moderate in the past, now Severe on ECHO, continue medical management - Stent to ramus in 2017, may restart baby aspirin in 1 week Pulmonary - No issues GI - No issues, HH diet - ecoli UTI, antibiotics started today - Renal function elevated, dehydration/UTI? continue gentle hydration and follow daily labs Musculoskeletal - Hx of gout, not in flare ID - On ceftriaxone for ecoli in urine Skin - No issues - Start OOB and ambulating with PT BHARGAV Endocrine - Glucose well controlled, no hx of DM DVT Prophylaxis - SCDs, transition to eliquis Code Status: DNR/DNI, confirmed with patient and family Critical Care Time: 60 minutes Medically stable for downgrade to telemetry.
[2019-08-05] MEDS: Atorvastatin* 40 MG TAB PO SCH (17:19)
[2019-08-05] MEDS: Aspirin EC TAB* 325 MG PO SCH (17:19)
[2019-08-05] MEDS: cefTRIAXone(*) 1 GM in NS 0.9% 50 ML* 50 ML IVPB SCH (17:41)
[2019-08-06 06:21] LABS: BUN/Creatinine Ratio 22.1 (8-20); Calcium 8.6 mg/dL (8.6-10.3); EGFR African American 67.7 (>60); EGFR Non-African American 55.9 (>60); Potassium 3.9 mmol/L (3.5-5.0)
[2019-08-06] MEDS: NS 0.9% 1000 ML** 1,000 ML IV SCH (07:32)
[2019-08-06] MEDS: amLODIPine TAB* 5 MG PO SCH (08:36)
[2019-08-06] MEDS: Aspirin EC TAB* 325 MG PO SCH (08:36)
[2019-08-06] MEDS: Carvedilol TAB* 6.25 MG PO SCH (08:37)
--- NOTE | 2019-08-06 10:44 | PN ---
Subjective Date of Service: 08/06/19 Interval History: Mr. Sesay had an uneventful night. His 2 sons and daughter in law are at the bedside and feels he is much better today. He's unable to say because he said he didn't think anything was wrong to begin with. He has no complaints. Objective Active Medications: Amlodipine Besylate (Norvasc Tab*) 10 mg PO DAILY [facility] Last Admin: 08/06/19 08:36 Dose: 10 mg Aspirin (Ecotrin Ec Tab*) 325 mg PO DAILY [facility] Stop: 08/11/19 09:01 Last Admin: 08/06/19 08:36 Dose: 325 mg Atorvastatin Calcium (Lipitor*) 40 mg PO 1700 [facility] Last Admin: 08/05/19 17:19 Dose: 40 mg Carvedilol (Coreg Tab*) 12.5 mg PO BID [facility] Colchicine (Colcrys*) 1.2 mg PO ONCE [facility] Ceftriaxone Sodium 1 gm/ (Sodium Chloride) 50 mls @ 100 mls/hr IVPB Q24H [facility] Last Admin: 08/05/19 17:41 Dose: 100 mls/hr Vital Signs - 8 hr 08/06/19 08/06/19 08/06/19 03:04 07:16 07:55 Temperature 98.3 F 97.8 F Pulse Rate 61 61 Respiratory 16 24 24 Rate Blood Pressure 173/52 192/78 (mmHg) O2 Sat by Pulse 95 Oximetry Oxygen Devices in Use Now: None Appearance: alert, well appearing Eyes: No Scleral Icterus Ears/Nose/Mouth/Throat: NL Teeth, Lips, Gums Neck: NL Appearance and Movements; NL JVP Respiratory: Symmetrical Chest Expansion and Respiratory Effort Cardiovascular: - - harsh systolic murmur RUSB with preserved S2 Abdominal: NL Sounds; No Tenderness; No Distention Lymphatic: No Cervical Adenopathy Extremities: No Edema Skin: No Rash or Ulcers Neurological: - - oriented to person, place, situation, cannot recall the year, says 19..., strength is 5/5 in all extremities except LUE, which is 4/5, but then when I point out the weakness he can correct it. He is able to name objects, repeat phrases, and recognize family. Result Diagrams: 08/05/19 04:43 08/06/19 04:50 Microbiology and Other Data: Microbiology 08/04/19 13:39 Urine Culture - Final Urine Escherichia Coli 08/04/19 15:30 Nasal Screen MRSA (PCR) - Final Nasal Mrsa Not Detected Assess/Plan/Problems-Billing Assessment: This is an 88 year old man with history of aortic stenosis, HTN who presented on 08/04 with aphasia and was found to have an MCA infarct - Patient Problems (1) Arterial ischemic stroke, MCA (middle cerebral artery), left, acute Current Visit: Yes Status: Acute Code(s): I63.512 - CEREB INFRC D/T UNSP OCCLS OR STENOS OF LEFT MID CEREB ART SNOMED Code(s): 504325247 Comment: s/p TPA improving continue ASA 325mg (because this occurred on ASA 81mg) x 1 week, then repeat CT , then plan to start therapeutic anticoagulation repeat CT brain yesterday was negative for bleed; so ASA started then (08/05) PT was unable to evaluate him yesterday; attempt re-eval today continues to be on nectar thick liquids; plan for speech re-eval tomorrow I discussed acute rehab with him, and he says "absolutely not" ... he has a supportive family; we will see how he progresses with therapy continue statin (2) HTN (hypertension) Current Visit: Yes Status: Acute Code(s): I10 - ESSENTIAL (PRIMARY) HYPERTENSION SNOMED Code(s): 37438222 Comment: uncontrolled. his systolic bp this morning was >190 and I was not informed recheck stat he did not get his antihypertensives last night due to normotension, which may explain his bp this am continue amlodipine and coreg (3) UTI (urinary tract infection) Current Visit: Yes Status: Acute Comment: ceftriaxone day 2 (4) TONY (acute kidney injury) Current Visit: Yes Status: Acute Code(s): N17.9 - ACUTE KIDNEY FAILURE, UNSPECIFIED SNOMED Code(s): 37006010 Comment: improving, no baseline DC IVF today to encourage mobility (5) Severe aortic stenosis Current Visit: Yes Status: Acute Code(s): I35.0 - NONRHEUMATIC AORTIC (VALVE ) STENOSIS SNOMED Code(s): 75813701 Comment: asymptomatic needs 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 anticipate DC tomorrow after PT eval, speech re-eval, better BP control, neuro re-eval, disposition planning
[2019-08-06 10:55] LABS: Hematocrit 40 % (42-52); Hemoglobin 13.5 g/dL (14.0-18.0); Mean Corpuscular HGB Conc 33 g/dL (31-36); Mean Corpuscular Hemoglobin 29 pg (27-31); Mean Corpuscular Volume 86 fL (80-94); Mean Platelet Volume 8.2 fL (7.4-10.4); Platelet Count 165 10^3/uL (150-450); Red Blood Count 4.71 10^6 /uL (4.18-5.48); Red Cell Distribution Width 15 % (10-15)
[2019-08-06 11:02] LABS: ABS Basophils 0.1 10^3/ul (0-0.2); ABS Eosinophils 0.2 10^3/ul (0-0.6); ABS Lymphocytes 1.3 10^3/ul (1.0-4.8); ABS Neutrophils 4.4 10^3/ul (1.5-7.7); Lymphocyte % 16.4 %; Nucleated Red Blood Cells % 0.1
--- NOTE | 2019-08-06 14:05 | PN ---
PROGRESS NOTE: DATE OF VISIT: 08/06/19 DATE OF DICTATION: 08/06/19. PATIENT OF: Dr. Barlow in [place]. HISTORY: His speech is better today and his thought process the family thinks is back to normal. He feels good. He has been up into the bathroom, but not further than that. MEDICATIONS: Include: 1. Aspirin 325. 2. Norvasc 10 mg daily. 3. Lipitor 40 mg daily. 4. Coreg 12.5 b.i.d. 5. Ceftriaxone IV. PHYSICAL EXAMINATION: Blood pressure is ranged from 150s to 190s over 60, currently over 66. He is alert and oriented with normal speech and naming objects, comprehension. He still has a mild right facial weakness. Strength is 5/5. Chest: Clear. Cardiovascular: Had a systolic murmur. DIAGNOSTIC STUDIES/LAB DATA: CT scan showed his new stroke, but no bleed. ASSESSMENT AND PLAN: I discussed with Randa and the family that he has had a stroke most likely from cardioembolic source and that he will need to go on anticoagulation. His risk acutely from bleeding if he went down to anticoagulation would be higher than the risk from further stroke, but in a week 's time, the benefits of anticoagulation would most likely outweigh the risks and he should be started after a CT scan. There are no further recommendations at this point and I will be speaking to Dr. Barlow about the best way of making these recommendations happen. Thank you for sharing his case. [id number]/[facility] #: [id number] SAMI
[2019-08-06] MEDS: Atorvastatin* 40 MG TAB PO SCH (16:27)
[2019-08-06] MEDS: cefTRIAXone(*) 1 GM in NS 0.9% 50 ML* 50 ML IVPB SCH (16:27)
[2019-08-06] MEDS ORDERED: Carvedilol TAB* 25 MG PO SCH (21:00)
[2019-08-06] MEDS ORDERED: Carvedilol TAB* 6.25 MG PO SCH (21:00)
[2019-08-07] MEDS ORDERED: hydrALAZINE IV* 20 MG/ML VIAL IV SLOW PU PRN (00:26)
[2019-08-07] MEDS ORDERED: Acetaminophen TAB* 325 MG PO PRN (02:29)
[2019-08-07 06:21] LABS: Hematocrit 40 % (42-52); Hemoglobin 13.9 g/dL (14.0-18.0); Mean Corpuscular HGB Conc 34 g/dL (31-36); Mean Corpuscular Hemoglobin 29 pg (27-31); Mean Corpuscular Volume 85 fL (80-94); Mean Platelet Volume 8.2 fL (7.4-10.4); Platelet Count 164 10^3/uL (150-450); Red Blood Count 4.75 10^6 /uL (4.18-5.48); Red Cell Distribution Width 15 % (10-15); White Blood Count 9.5 10^3/uL (3.5-10.8)
[2019-08-07 06:25] LABS: ABS Basophils 0.1 10^3/ul (0-0.2); ABS Eosinophils 0.2 10^3/ul (0-0.6); ABS Lymphocytes 1.3 10^3/ul (1.0-4.8); ABS Monocytes 2.5 10^3/ul (0-0.8); ABS Neutrophils 5.4 10^3/ul (1.5-7.7); Eosinophil % 2.2 %; Lymphocyte % 13.8 %
[2019-08-07 06:27] LABS: INR 1.5 (0.82-1.09)
[2019-08-07 06:43] LABS: BUN/Creatinine Ratio 19.8 (8-20); Calcium 8.8 mg/dL (8.6-10.3); EGFR African American 68.3 (>60); EGFR Non-African American 56.5 (>60); Potassium 4.1 mmol/L (3.5-5.0)
[2019-08-07] MEDS: amLODIPine TAB* 5 MG PO SCH (07:35)
[2019-08-07] MEDS: Aspirin EC TAB* 325 MG PO SCH (08:16)
[2019-08-07 09:32] LABS: Hematocrit 41 % (42-52); Hemoglobin 13.7 g/dL (14.0-18.0); Mean Corpuscular HGB Conc 33 g/dL (31-36); Mean Corpuscular Hemoglobin 29 pg (27-31); Mean Corpuscular Volume 86 fL (80-94); Mean Platelet Volume 8.2 fL (7.4-10.4); Platelet Count 169 10^3/uL (150-450); Red Blood Count 4.78 10^6 /uL (4.18-5.48); Red Cell Distribution Width 15 % (10-15); White Blood Count 9.1 10^3/uL (3.5-10.8)
[2019-08-07 09:33] LABS: ABS Basophils 0.1 10^3/ul (0-0.2); ABS Eosinophils 0.2 10^3/ul (0-0.6); ABS Lymphocytes 1.3 10^3/ul (1.0-4.8); ABS Monocytes 2.4 10^3/ul (0-0.8); ABS Neutrophils 5.1 10^3/ul (1.5-7.7); Eosinophil % 1.9 %; Lymphocyte % 14.3 %
[2019-08-07 12:05] VITALS: BP 129/56
--- NOTE | 2019-08-07 22:21 | DS ---
CC: Dr. Fernandez; Paris Roman NP at the [place]* DISCHARGE SUMMARY: DATE OF ADMISSION: 08/04/19 DATE OF DISCHARGE: 08/07/19 PRINCIPAL DISCHARGE DIAGNOSES: 1. Left middle cerebral artery infarct. 2. New atrial fibrillation. 3. Accelerated hypertension. 4. Severe aortic stenosis. 5. Bradycardia. SECONDARY DISCHARGE DIAGNOSES: 1. Coronary artery disease. 2. Hypertension. MEDICATIONS FOR DISCHARGE: 1. Colchicine 1.2 mg daily. 2. Amlodipine 10 mg daily. 3. Aspirin 325 mg daily. 4. Atorvastatin 40 mg daily. 5. Augmentin 500 mg b.i.d. for 4 more days. PHYSICAL EXAMINATION: At discharge, temperature 97.5, heart rate 72, respiratory rate 20, pulse ox 97% on room air, blood pressure 129/56. General: Alert, well- appearing elderly man, in no distress, visiting with his family. HEENT: Pupils are equal, round, reactive to light. Oral mucosa is moist. Neck: No JVP. No adenopathy. Chest: He is in an irregularly irregular rhythm with a harsh systolic murmur at the right upper sternal border with preserved S2. His lungs are clear bilaterally. Abdomen: Soft, nontender, nondistended. Extremities: No edema, rashes or ulcers. Neurologic: Face is symmetric. No nystagmus. His speech is clear, accurate. His strength is 5/5 in all extremities. His gait is cautious but steady. His comprehension is intact and his recall is intact. PERTINENT IMAGING: A brain MRI on 08/04/19 showed late [id number] subacute left MCA infarct burden, no mass effect or associated hemorrhage, mild chronic small vessel ischemic disease is likely, and mild cerebral volume loss. A head CTA on 08/04/19 showed acute left frontal infarct with no hemorrhage or mass effect, thromboembolus occlusion of a proximal M2 branch of the left MCA, either adherent thrombus or soft plaque results in 50% stenosis in the cavernous segment of the right ICA. The embolic potential of this site is unclear and intracranially extracranial atherosclerotic disease. A transthoracic echocardiogram on 08/04/19 showed LV cavity size normal. Ejection fraction 55% to 60%. No regional wall motion abnormalities. RV systolic function normal. Aortic valve peak velocity 3.9 m/sec. The valve area by the velocity time integral method is 0.57 centimeter squared. HOSPITAL COURSE BY PROBLEM: 1. Acute left middle cerebral artery infarct. 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 So, he received TPA and his aphasia improved quickly. He was admitted to the ICU for close observation and q.1 neuro checks and he continued to improve. He was followed closely by neurology service and he was noted to be in atrial fibrillation, which is the suspected source of his cerebrovascular accident. Neurology recommended against therapeutic anticoagulation in the acute window, but recommended a repeat brain CT in 1 week, at which time if there is still no bleed and the infarct is stable, therapeutic anticoagulation should be started. They suspected that the risk of bleeding at this point outweighs the benefit of secondary stroke prevention. However, I have discussed with Randa and his family at length that the long-term benefit at this time currently outweighs the risk; however, this discussion should be continued longitudinally with his primary care provider as well as his outpatient neurologist, which will be Dr. Fernandez at the time of discharge. He has worked with physical therapy and speech therapy and is noted to have no current deficits at the time of discharge. 2. Atrial fibrillation. As above, he ultimately will need therapeutic anticoagulation, but Neurology recommended against it at this time until a repeat CT remains stable. He was rate controlled and without any further complications. 3. Accelerated hypertension. At admission when he was in the ICU, he required a nicardipine drip. He is normotensive at the time of discharge on home medications with the exception of Coreg, which was held due to bradycardia as discussed below. 4. Severe aortic stenosis. Dr. Davies was consulted during this admission and recommended no intervention at this time. Mr. Sesay is asymptomatic from an aortic stenosis perspective. 5. Bradycardia. He was noted to have bradycardia with sinus pauses while on the Coreg. The Coreg was discontinued. 6. Coronary artery disease. He was continued on aspirin and statin. 7. Disposition. Mr. Sesay is being discharged to home on 08/07/19 with his son. He will have help at home. He has a followup appointment with Dr. Fernandez this Wednesday at 10:[address] Fernandez's office is arranging for an outpatient repeat CT to be done. CONDITION AT THE TIME OF DISCHARGE: Stable. [id number]/[facility] #: [id number] [facility]
== END 2019-08-07 14:05 | disposition home or self-care (01) | DRG 62 ==
LOC: ED 10:43 → ICU 12:53 → MEDTELE 08-05 17:00
PROVIDERS: ADMIT Internal Medicine Critical Care Medicine; ATTEND Internal Medicine
DX: I63.412 Cerebral infarction due to embolism of left middle cerebral artery (principal); I48.20 Chronic atrial fibrillation, unspecified; N39.0 Urinary tract infection, site not specified; N17.9 Acute kidney failure, unspecified; R00.0 Tachycardia, unspecified; I44.7 Left bundle-branch block, unspecified; R29.706 NIHSS score 6; R29.810 Facial weakness; R47.1 Dysarthria and anarthria; I10 Essential (primary) hypertension; I25.10 Atherosclerotic heart disease of native coronary artery without angina pectoris; E78.5 Hyperlipidemia, unspecified; M10.9 Gout, unspecified; M19.90 Unspecified osteoarthritis, unspecified site; Z66 Do not resuscitate; R47.01 Aphasia; I35.0 Nonrheumatic aortic (valve) stenosis; B96.20 Unspecified Escherichia coli [E. coli] as the cause of diseases classified elsewhere; Z79.82 Long term (current) use of aspirin; I25.2 Old myocardial infarction; Z95.5 Presence of coronary angioplasty implant and graft; Z79.899 Other long term (current) drug therapy; Z91.14 Patient's other noncompliance with medication regimen
CPT/HCPCS: 36415; 70450; 70496; 70498; 70551; 71045; 80048; 80053; 80061; 81003; 81015; 83605; 84484; 85025; 85610; 85730; 87077; 87086; 87186; 87641; 90686; 93005; 93306; 99285; A9270-GY; G8978-GP-CH; G8979-GP-CH; G8980-GP-CH; J0360; J0696; J2997; Q9967

== ENCOUNTER 2019-08-10 12:23 | Observation (INO) | payer OTHER ==
--- NOTE | 2019-08-10 13:01 | ED ---
Neurological HPI - HPI Summary HPI Summary: This pt is an 88 y/o male presenting to [facility] via EMS for difficulty standing up. Family members report pt was in the ED on 08/04/19 and diagnosed with a stroke for which he received tPA. Per family members, his stroke symptoms were incoherence and dysphasia. Family members state his symptoms got better after tPA and was discharged on 08/07/19. Per family members every since 08/07/19 pt has been having a hard time standing up from a sitting position. Family members report pt is able to walk once he is up but cannot get up. They called Dr. Fernandez and was advised to come to the ED for a repeat scan. Pt is also c/o left wrist pain and right knee pain. PMHx: gout and contracture of left hand - History of Current Complaint Chief Complaint: EDNeurologicalDeficit Stated Complaint: POSS STROKE PER EMS Time Seen by Provider: 08/10/19 12:36 Hx Obtained From: Patient, Family/Smash Fixer Onset/Duration: Started days ago, Still Present Current Severity: Moderate Pain Intensity: 6 Pain Scale Used: 0-10 Numeric Character: Other: - difficulty standing up Aggravating: Nothing Alleviating: Nothing Associated Signs and Symptoms: Positive: Pain - left wrist and right knee. Negative: Chest Pain, Shortness of Breath - Additional Pertinent History Primary Care Physician: ROB - Allergy/Home Medications Allergies/Adverse Reactions: Allergies Allergy/AdvReac Type Severity Reaction Status Date / Time No Known Allergies Allergy Verified 08/04/19 11:36 Home Medications: Home Medications Aspirin EC TAB* [Ecotrin EC Low Dose 81 MG*] 81 mg PO DAILY 08/10/19 [History Confirmed 08/10/19] Atorvastatin* [Lipitor 40 MG*] 40 mg PO DAILY 08/10/19 [History Confirmed ] PMH/Surg Hx/FS Hx/Imm Hx Endocrine/Hematology History: Denies: Hx Diabetes Cardiovascular History: Reports: Hx Atrial Fibrillation, Hx Hypercholesterolemia , Hx Hypertension Denies: Hx Pacemaker/ICD Musculoskeletal History: Reports: Hx Gout Sensory History: Reports: Hx Contacts or Glasses - not in hopsital, Hx Hearing Aid - not in hospital Opthamlomology History: Reports: Hx Contacts or Glasses - not in hopsital Neurological History: Reports: Hx Transient Ischemic Attacks (TIA) Psychiatric History: Denies: Hx Panic Disorder - Surgical History Surgical History: Yes Surgery Procedure, Year, and Place: CARDIAC CATH W/ STENT PLACEMENT; B/L CARPAL TUNNEL AND TRIGGER RELEASES Infectious Disease History: No Infectious Disease History: Denies: Traveled Outside the [place] in Last 30 Days - Family History Known Family History: Negative: Cardiac Disease, Hypertension, Diabetes - Social History Alcohol Use: None Substance Use Type: Reports: None Smoking Status (MU): Never Smoked Tobacco Review of Systems Negative: Fever Cardiovascular: Negative Respiratory: Negative Gastrointestinal: Negative Musculoskeletal: Other - POSITIVE: left wrist pain, right knee pain Neurological: Other - POSITIVE: difficulty standing up All Other Systems Reviewed And Are Negative: Yes Physical Exam - Summary Physical Exam Summary: Constitutional: Well-developed, Well-nourished, Alert. (-) Distressed Skin: Warm, Dry HENT: Normocephalic; Atraumatic Eyes: Conjunctiva normal Neck: Musculoskeletal ROM normal neck. (-) JVD, (-) Stridor Cardio: Rhythm regular, rate normal, Heart sounds normal; Intact distal pulses; Radial pulses are 2+ and symmetric. (-) Murmur Pulmonary/Chest wall: Effort normal. (-) Respiratory distress, (-) Wheezes, (-) Rales Abd: Soft, (-) tenderness, (-) Distension, (-) Guarding, (-) Rebound Musculoskeletal: Swelling of the left wrist and first and second digits, with decreased ROM. He has tenderness of the right knee but no tenderness of foot or ankle. Lymph: (-) Cervical adenopathy Neuro: Alert, PERRL, Oriented x3, Strength normal, Cranial nerves II-XII are grossly intact. SILT, Strength 5/5 BUE and BLE, (-) Nystagmus, No right sided dysmetria, unable to perform left dysmetria exam, gait is deferred. Psych: Mood and affect Normal Triage Information Reviewed: Yes Vital Signs On Initial Exam: Initial Vitals Temp Pulse Resp BP Pulse Ox 97.3 F 71 19 173/71 97 08/10/19 12:37 08/10/19 12:37 08/10/19 12:37 08/10/19 12:37 08/10/19 12:37 Vital Signs Reviewed: Yes Procedures - Sedation Patient Received Moderate/Deep Sedation with Procedure: No Diagnostics - Vital Signs Vital Signs Temp Pulse Resp BP Pulse Ox 08/10/19 12:37 97.3 F 71 19 173/71 97 - Laboratory Result Diagrams: 08/10/19 13:18 08/10/19 13:18 Lab Statement: Any lab studies that have been ordered have been reviewed, and results considered in the medical decision making process. - Radiology Left hand XR Radiology Interpretation Completed By: Radiologist Summary of Radiographic Findings: IMPRESSION: #. Negative for fracture or dislocation. Bone density appears decreased throughout. #. Polyarticular osteoarthritis most marked at the basal joint of the thumb where it is severe. Suggestion of partial ankylosis at the trapezium first metacarpal articulation. #. Nonfocal soft tissue swelling. Dr. Sam has reviewed this report. Left wrist XR Radiology Interpretation Completed By: Radiologist Summary of Radiographic Findings: IMPRESSION: 1. Diffuse soft tissue swelling. 2. Erosive changes suggestive of an inflammatory arthropathy. Recommend clinical correlation. 3. Deformity of the distal radius likely secondary to an old healed fractured. Dr. Sam has reviewed this report. Right knee XR Radiology Interpretation Completed By: Radiologist Summary of Radiographic Findings: IMPRESSION: Marked degenerative changes of the medial compartment of the right knee. No joint effusion is noted. Dr. Sam has reviewed this report. - CT Brain CT CT Interpretation Completed By: Radiologist Summary of CT Findings: IMPRESSION: Chronic ischemic white matter change. No intracranial mass or hemorrhage is noted. Dr. Sam has reviewed this report. Re-Evaluation - Re-Evaluation First Eval Re-Evaluation Time: 14:55 Comment: Reviewed results with pt and family. Concern for safety ambulating at home w wrist pain and weakness. Given colchicine. Admit for PT/OT Course/Dx - Course Course Of Treatment: 88-year-old male with a history of recent stroke status post TPA presents with weakness, L wrist pain, R knee pain. - hx gout, L wrist swollen. Will check XRays. Will also check XR R knee. - check head CT given tpa and weakness as well as labs. - Diagnoses Provider Diagnoses: Gout, Weakness - Physician Notifications Discussed Care Of Patient With: Nell Boyce Time Discussed With Above Provider: 13:02 Instructed by Provider To: Other - Discussed with Dr. Boyce, neurologist, who is aware of patient and will call him about results. [15:43] Dr. Ashley, hospitalist, accepts the pt for admission. Discharge ED - Sign-Out/Discharge Documenting (check all that apply): Patient Departure - Ad[place] [facility] [place] Discharge Plan Condition: Stable Disposition: ADMITTED TO [facility] Referrals: No Primary Care Phys,NOPCP [Primary Care Provider] - - Billing Disposition and Condition Condition: STABLE Disposition: Admitted to [facility] - Attestation Statements Document Initiated by Zairaibe: Yes Documenting Scribe: Jeana Soto Provider For Whom Hector is Documenting (Include Credential): Andrez Sam MD Scribe Attestation: Jeana Timmons, scribed for Andrez Sam MD on 08/10/19 at 1654. Scribe Documentation Reviewed: Yes Provider Attestation: The documentation as recorded by the Jeana vidal accurately reflects the service I personally performed and the decisions made by Andrez nicolas MD Status of Scribe Document: Viewed
[2019-08-10 13:40] LABS: Hematocrit 41 % (42-52); Hemoglobin 13.7 g/dL (14.0-18.0); Mean Corpuscular HGB Conc 34 g/dL (31-36); Mean Corpuscular Hemoglobin 28 pg (27-31); Mean Corpuscular Volume 85 fL (80-94); Mean Platelet Volume 7.8 fL (7.4-10.4); Platelet Count 247 10^3/uL (150-450); Red Blood Count 4.84 10^6 /uL (4.18-5.48); Red Cell Distribution Width 15 % (10-15); White Blood Count 11.6 10^3/uL (3.5-10.8)
[2019-08-10 14:04] LABS: Albumin 3.4 g/dL (3.2-5.2); BUN/Creatinine Ratio 26.7 (8-20); EGFR African American 62.3 (>60); EGFR Non-African American 51.5 (>60); Globulin 3.5 g/dL (2-4); Potassium 4.5 mmol/L (3.5-5.0); Total Bilirubin 0.9 mg/dL (0.2-1.0); Total Protein 6.9 g/dL (6.4-8.9)
[2019-08-10 14:16] LABS: ABS Basophils 0.1 10^3/ul (0-0.2); ABS Eosinophils 0.1 10^3/ul (0-0.6); ABS Lymphocytes 1.4 10^3/ul (1.0-4.8); ABS Monocytes 2.7 10^3/ul (0-0.8); ABS Neutrophils 7.3 10^3/ul (1.5-7.7); Eosinophil % 0.8 %; Lymphocyte % 11.7 %; Nucleated Red Blood Cells % 0.3
[2019-08-10 14:39] LABS: Urine Appearance Clear; Urine Bilirubin Negative (Negative); Urine Blood 1+ (Negative); Urine Color Yellow; Urine Glucose Negative (Negative); Urine Ketones Negative (Negative); Urine Nitrite Negative (Negative); Urine Protein 2+(100 mg/dL) (Negative); Urine Specific Gravity 1.014 (1.010-1.030); Urine Urobilinogen Positive (Negative)
[2019-08-10 14:44] LABS: Urine Bacteria Absent (Absent); Urine Red Blood Cell 3+(>10/hpf) (Absent); Urine Squamous Epithelial Cell Present (Absent); Urine White Blood Cell Trace(0-5/hpf) (Absent)
[2019-08-10] MEDS ORDERED: Acetaminophen TAB* 325 MG PO PRN (16:35)
[2019-08-10] MEDS ORDERED: Ondansetron INJ* 2 MG/ML VIAL IV PRN (16:35)
[2019-08-10 17:04] LABS: C Reactive Protein 109.42 mg/L (<8.01)
[2019-08-10 18:16] LABS: Uric Acid 8.8 mg/dL (4.4-7.6)
[2019-08-10] MEDS: Amoxicillin/Clavulanate TAB* 500 MG PO SCH (20:28)
[2019-08-10] MEDS: Atorvastatin* 40 MG TAB PO SCH (20:29)
--- NOTE | 2019-08-10 21:18 | HP ---
CC: , [place] in [place]; Dr. Genaro Ashley* ADMISSION HISTORY AND PHYSICAL: DATE OF ADMISSION: 08/10/19 PRIMARY CARE PROVIDER: from [place] in [place]. MY ATTENDING WHILE IN THE HOSPITAL: Dr. Genaro Ashley* (dictated by MCKAY Oneill). CHIEF COMPLAINT: "I am unable to stand x1 day." HISTORY OF PRESENT ILLNESS: Mr. Sesay is an 88-year-old male with past medical history significant for very recent CVA on 08/04/19, due to likely thromboembolic source related to atrial fibrillation as well as coronary artery disease, severe aortic stenosis, and gout, who presents to the emergency department after being discharged from this institution on 08/07/19 in stable condition to home with the assessment of his family and visiting nurse services , and physical therapist. The patient initially was doing well, performing well with physical therapy, but then started complaining of pain in his wrist, bilateral knees, and right ankle. This got worse over several days. The patient has been prescribed colchicine, but has not been taking it at home. The patient does have some cognitive impairment particularly with word-finding difficulty since his stroke. He is unable to state why he was not taking his colchicine. The patient has previously had gout flares affecting his great toe , his right hand, and left elbow, and he states that this does not particularly feel like those, but mainly because this is associated with the Dupuytren's contracture on that side and it hurts whenever he tries to move his fingers, and the patient has no reasons besides his recent hospitalization, has no other risk factors for bacterial infection. The patient had no fevers or chills. No chest pain or shortness of breath. No swelling in his legs. No nausea or vomiting. No abdominal pain or diarrhea. The patient states that he has no pain at rest, but has very limited range of motion in his left hand with both movement of his fingers and movement of his wrists. The patient today was unable to stand up for 6 hours, which was prompting factor for him coming into the emergency department. In the emergency department, he was found to have a slightly elevated white blood cell count, pain in his wrist. No signs of infection. The patient has no recent sick contacts. No asthma or upper respiratory symptoms. The patient's other labs are stable with his recent and previously established baseline. The patient had a CT of his head, which was unremarkable for any progression of his CVAs. The patient had a wrist x-ray, which showed possible inflammatory arthropathy. The patient in the emergency department received a dose of colchicine and we were asked to evaluate the patient for admission to the hospital. PAST MEDICAL HISTORY: Recent CVA; coronary artery disease; history of VT; hypertension; hyperlipidemia; atrial fibrillation; left bundle-branch block; severe aortic stenosis; Meniere's disease; gout; chronic kidney disease, stage IIIB. PAST SURGICAL HISTORY: Dupuytren's contracture release of the right hand, stent to his ramus intermedius. MEDICATIONS: 1. Colchicine 1.2 mg p.o. daily as needed. 2. Amlodipine 10 mg p.o. daily. 3. Aspirin 81 mg p.o. daily. 4. Atorvastatin 40 mg p.o. daily. ALLERGIES: No known drug allergies. FAMILY HISTORY: Both of the patient's parents when they were very old of unknown causes. SOCIAL HISTORY: The patient never smoked, drank, used illicit drugs. 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 The patient is and has 8 biological children and 4 adopted children. The patient's surrogate decision maker will be his son, Bruce Sesay. REVIEW OF SYSTEMS: A 10-point review of systems was reviewed and is negative except as above in the HPI. PHYSICAL EXAMINATION GENERAL: The patient is an 88-year-old male, who appears stated age, has a pronounced left sided facial droop, and sitting comfortably in bed, in no acute distress. VITAL SIGNS: Temperature 97.3, pulse rate 63, respiratory rate 14, oxygen saturation 97% on room air, blood pressure 159/64. HEENT: Head: Normocephalic and atraumatic. Sclerae anicteric. No conjunctival injection. Nasal mucosa moist. Oral mucosa moist. No pharyngeal erythema, discharge or exudate. NECK: Supple, nontender. No lymphadenopathy. No carotid bruits auscultated. No JVD. RESPIRATORY: Clear to auscultation bilaterally. No wheezes, rales or rhonchi. Good air exchange bilaterally. CARDIAC: Regular rate. Irregularly irregular rhythm. Grade 4/6 systolic ejection murmur heard best at the right upper sternal border, absent S2. No bilateral lower extremity edema noted. No other adventitious heart sounds. No bilateral calf tenderness. ABDOMEN: Soft, nontender, nondistended. Bowel sounds present and normoactive in all 4 quadrants. No hepatosplenomegaly. No abdominal bruits auscultated. No hepatojugular reflux. GENITOURINARY: No suprapubic or CVA tenderness. NEUROLOGIC: Left-sided facial droop. Strength preserved in the bilateral lower extremities and right upper extremity. Limited exam on the left upper extremity due to pain in the wrist. PSYCHIATRIC: Pleasant and cooperative. SKIN: Clean, dry, and intact. No rash. Swelling of the left wrist without marked erythema. Significant decreased range of motion. DIAGNOSTIC STUDIES/LAB DATA: White blood cell count 11.6, hemoglobin 13.7, platelet count 247. Sodium 135, potassium 4.5, chloride 104, carbon dioxide 22 , anion gap 9, BUN 1.31, glucose 101, calcium 9.0. Bilirubin 0.9, AST 17, ALT 14, alkaline phosphatase 1.21. CRP pending. Protein 6.9, albumin 2.4, globulin 3.9. Urine shows 2+ protein, 1+ blood, positive urobilinogen, 3+ red blood cells, squamous epithelial cells present, hyaline casts present. Studies: Brain CT read as chronic ischemic white matter change, no intracranial mass or hemorrhage. Knee x-ray read as marked degenerative changes in the medial compartment of the right knee. No joint effusions noted. Wrist x-ray read as diffuse soft tissue swelling, erosive changes consistent with inflammatory arthropathy. Recommend clinical correlation, deformity of the distal radius likely secondary to old healed fracture. Hand x-ray read as negative for fracture or dislocation. Bone density appears decreased throughout, polyarticular osteoarthritis most remarkably at the basal joint of the thumb, where it is severe. Suggestions of partial line closure of trapezium, first metacarpal articulation, polyarticular subchondral cyst formation related to arthropathy, nonfocal soft tissue swelling. ASSESSMENT AND PLAN: Impression: Ms. Sesay is an 88-year-old male with past medical history significant for very recent cerebrovascular accident, remote history of coronary artery disease, new diagnosis of aortic stenosis, and atrial fibrillation, who presents to the emergency department with ambulatory function due to instability, uses walker related to left wrist pain as well as bilateral knee pain, worse on the right than the left possibly related to gout. The patient is currently unable to function appropriately at home and was admitted to the hospital for symptomatic treatment and physical therapy, and articulation of his post-stroke care. 1. Ambulatory function, possible left wrist gout. The patient is having trouble standing up due to a weakness from his recent stroke, but worsened by inability to use a walker and stand up related to left wrist pain. The patient has redness and swelling of this wrist. The patient has had no trauma to this wrist. The patient has had history of gout. This is most likely diagnosis; however, the patient has no risk factors for this being related to septic arthritis; however, this must still be on the differential. The patient has a slightly elevated white blood cell count. The patient has a CRP that is pending. This will be trended. The patient will be started on colchicine. Steroids will be held off on at this time. Urgent arthrocentesis is not indicated at this time given the relative low clinical suspicion, however, if the patient does not improve on colchicine or if he starts to develop fevers, worsening pain or swelling while on anti-inflammatory therapy, then arthrocentesis with culture should be also considered. The patient does not respond to colchicine, but shows no other signs of infection as this should likely be determined to be a gout flare definitely before the initiation of systemic or intra-articular steroids. Orthopedic consultation to help guide this treatment plan may be considered if the patient does not improve. Uric acid will be added on and long-term uric acid lowering therapy may be considered. The patient will not be started on NSAIDs due to risk of bleeding and likely initiation of anticoagulant therapy. The patient will be on colchicine 0.6 mg twice daily. 2. History of recent cerebrovascular accident. The patient had a repeat head CT, which did not show any bleeding nor did it show the infarcts previously noted on CT and MRI. The patient tomorrow will be started on Eliquis per the previous recommendation of Neurology and Cardiology on his previous admission. The patient needs to follow up with Dr. Fernandez, outpatient with regards to this. 3. Severe aortic stenosis. This is stable. This needs ongoing followup likely through a coordinator cardiopulmonary services office. 4. Atrial fibrillation. The patient is currently rate controlled on no medications. The patient's anticoagulation as above. 5. Hypertension. Continue the patient's amlodipine. 6. Coronary artery disease. Continue the patient's aspirin. 7. Hyperlipidemia. Continue atorvastatin. 8. Disposition. The patient is admitted to observation to the hospital. 9. Chronic kidney disease at baseline, to avoid nephrotoxic drugs. The patient 's creatinine clearance was evaluated and was calculated at 40 and caution should be used with dosing of his colchicine. 10. DVT prophylaxis. The patient will be started on Eliquis starting tomorrow. 11. Previous UTI. Patient will finish his course of Augmentin tomorrow to complete a 7 day course. TIME SPENT: Approximately, 60 minutes was spent on the admission of this patient, 30 of which was spent [id number] with the patient obtaining history and physical and discussing treatment plan. This plan has been discussed with my attending, Dr. Genaro Ashley, he is in agreement. MCKAY ONEILL [id number]/CPS #: [id number] MTDD
[2019-08-10] MEDS: Colchicine* 0.6 MG TAB PO SCH (22:49)
[2019-08-11 05:35] LABS: ABS Basophils 0.1 10^3/ul (0-0.2); ABS Eosinophils 0.2 10^3/ul (0-0.6); ABS Lymphocytes 1.3 10^3/ul (1.0-4.8); ABS Monocytes 2.3 10^3/ul (0-0.8); ABS Neutrophils 6.3 10^3/ul (1.5-7.7); Eosinophil % 2.1 %; Hematocrit 39 % (42-52); Hemoglobin 13.2 g/dL (14.0-18.0); Lymphocyte % 12.9 %; Mean Corpuscular HGB Conc 34 g/dL (31-36); Mean Corpuscular Hemoglobin 28 pg (27-31); Mean Corpuscular Volume 84 fL (80-94); Mean Platelet Volume 7.5 fL (7.4-10.4); Nucleated Red Blood Cells % 0.1; Platelet Count 232 10^3/uL (150-450); Red Blood Count 4.72 10^6 /uL (4.18-5.48); Red Cell Distribution Width 15 % (10-15); White Blood Count 10.3 10^3/uL (3.5-10.8)
[2019-08-11 05:54] LABS: BUN/Creatinine Ratio 25.8 (8-20); C Reactive Protein 101.32 mg/L (<8.01); Calcium 8.7 mg/dL (8.6-10.3); EGFR African American 66.4 (>60); EGFR Non-African American 54.9 (>60); Magnesium 2.2 mg/dL (1.9-2.7); Potassium 4.1 mmol/L (3.5-5.0)
[2019-08-11] MEDS: Amoxicillin/Clavulanate TAB* 500 MG PO SCH (07:56)
[2019-08-11] MEDS: Colchicine* 0.6 MG TAB PO SCH (07:57)
[2019-08-11] MEDS ORDERED: amLODIPine TAB* 5 MG PO SCH (09:00)
[2019-08-11] MEDS ORDERED: Aspirin EC TAB* 81 MG TAB.EC PO SCH (09:00)
[2019-08-11] MEDS ORDERED: Apixaban* 5 MG TAB PO SCH ×3 (09:00)
[2019-08-11] MEDS ORDERED: Colchicine* 0.6 MG TAB PO SCH (09:00)
[2019-08-11 15:41] VITALS: BP 140/69
[2019-08-11] MEDS ORDERED: Colchicine* 0.6 MG TAB PO ONE (16:00)
[2019-08-11] MEDS: Atorvastatin* 40 MG TAB PO SCH (16:07)
[2019-08-11] MEDS ORDERED: PTO:Multivitamins/Mins (NF) AREDS2 1 CAP CAP PO SCH (21:00)
[2019-08-11] MEDS ORDERED: GLUCOSAMINE PO SCH (21:00)
--- NOTE | 2019-08-12 05:18 | DS ---
Amended report to enter cosigning physician. DISCHARGE SUMMARY: DATE OF ADMISSION: 08/10/19 DATE OF PATIENT GOING AMA: 08/11/19 PROVIDER: Marilynn Newsome NP. ATTENDING PHYSICIAN: Dr. Nichole* (dictated by Marilynn Newsome NP). PRIMARY CARE PHYSICIAN: Unknown. PRIMARY DIAGNOSES: Gout of the left wrist and bilateral lower extremity weakness due to recent stroke. SECONDARY DIAGNOSES: 1. Severe aortic stenosis. 2. History of cerebrovascular accident. 3. Atrial fibrillation. 4. Hypertension. 5. Coronary artery disease. 6. Hyperlipidemia. 7. Chronic kidney disease. PROCEDURES: None. DIAGNOSTIC STUDIES: CT of the brain showed chronic ischemic white matter change. No intracranial mass or hemorrhage noted. Right knee x-ray showed marked degenerative changes of the medial compartment of the right knee. No joint effusion is noted. Left wrist x-ray showed diffuse soft tissue swelling. Erosive changes suggestive of an inflammatory arthropathy, deformity of the distal radius, likely secondary to an old healed fracture and left hand x-ray was negative for fracture or dislocation. Bone density appears to be decreased throughout. Polyarticular osteoarthritis, most markedly at the basal joint of the thumb where it is severe, suggestion of partial ankylosis of the trapezium, first metacarpal articulation, polyarticular subchondral cyst formation related to the arthropathy and non-focal soft tissue swelling. PERTINENT LABORATORY DATA: Hemoglobin is 13.2, hematocrit is 39, BUN 32, creatinine 1.24, BUN-creatinine ratio is 25.8, and C-reactive protein is 101.32. HISTORY OF PRESENT ILLNESS/HOSPITAL COURSE: This is an 88-year-old male with past medical history significant for CVA on 08/04/19, atrial fibrillation, and severe aortic stenosis, who came to the emergency room on 08/10/19 after experiencing weakness that has gotten worst over the past several days. Originally, the patient had been admitted on 08/04/19 for CVA, likely due to a thromboembolic event related to atrial fibrillation and was subsequently discharged on 08/07/19 in stable condition to home with his family and vising nurse services as well as physical therapy. Initially, he had been doing well and then developed pain to his left wrist, bilateral knees, and right ankle that progressively got worse and impaired his ability to move around at home. Also, during this time, he had stopped taking his colchicine, though was unable to state why. During this hospital stay, the patient was reinstated on colchicine 0.6 mg twice a day orally and responded well to it. Initially, his white blood cell count was elevated at 11.6, though today, white blood cell count had decreased to 10.3. It was felt that his wrist looked somewhat better today than it had yesterday. It was slightly pink, though swollen with limited range of motion and pain with weightbearing. X-ray showed inflammatory and arthritic changes with no acute fracture. With regards to his bilateral lower extremity weakness, x-rays did not yield any fractures. He had full range of motion for me today. Physical therapy saw him this morning and recommended the use of a platform walker in order to be able to ambulate more steadily and required 1 to 2 assist to stand and 1 assist with frequent verbal clues to ambulate safely. It was felt by both myself and the therapist that he would benefit from a short stay at subacute rehab for reconditioning prior to going home. Initially, this was discussed with the patient and his [id number], who is a nurse and they both were agreeable to the plan, however, later today, after speaking with case management, the patient changed his mind and became insistent that he wanted to leave and did not want to go to subacute rehab. I spoke with the patient at length about his limited mobility and his risk for fall, subsequent breaking of bone, possibility for brain bleed that could lead to stroke or . The patient stated that he did not care and he still wanted to go home. Due to recent stroke, there was a question of cognitive impairment , however, when asked if he had smoked in the room, he knew to cough or help and remove himself from the situation and likewise, he was able to answer other similar reasoning questions with adequate answers. I believe the patient to have capacity to make his decision to go AMA. I recommended that he did stay due to concerns for falls. He stated that he has one-floor living situation with a ramp. There are no stairs. There is a retired nurse that lives next door and his [id number] and son lives [address], who were present in the room and agreed to check on him if he went home, though also agreed that they did not want him to leave; however, despite all education, he remained steadfast in his decision and signed AMA papers. REVIEW OF SYSTEMS: An 11-point system review was performed, which was positive for right wrist pain, limited range of motion, right hand and wrist swelling. Negative for chest pain, shortness of breath, abdominal pain, nausea, vomiting, headaches, fever, chills. PHYSICAL EXAMINATION: Vital Signs: Temperature 97.9, pulse 74, respirations 18 , oxygen 95% on room air, blood pressure 140/69. General: This is a well- developed gentleman, seen sitting up at the edge of bed, in no acute distress. Cardiac: S1, S2 present. Grade II stenosis heard loudest at left second intercostal space. No gallops or rubs appreciated. Respiratory: Lung sounds clear throughout bilaterally on room air. Abdomen is soft, nontender, and nondistended with positive bowel sounds x4. Musculoskeletal: Left wrist and finger swelling with slight erythema, tender to palpation. Limited range of motion. Capillary refill is less than 3 seconds. No clubbing or cyanosis of the digits. Neurologic: Sensation is intact to light touch. No focal deficits appreciated. Skin: Again, trace redness to the left wrist. No other open areas appreciated. DISCHARGE PLAN: Diet is regular diet. Activity: The patient is to use his walker with all ambulation. To return to the hospital should he develop any slurred speech, facial drooping, increasing weakness, or any chest pain or shortness of breath. PLAN FOR EACH CONDITION: 1. Gout. To continue colchicine 0.6 mg p.o. twice a day for the next 14 days, though should symptoms resolve before that, he should continue colchicine for 2 to 3 days beyond the end of symptoms. 2. Weakness secondary to recent CVA. The patient should use walker at all times. I spoke with family about contacting his next door neighbor to check upon him frequently as well as family making sure that he is okay. 3. History of recent CVA. The patient was started on full anticoagulation as of today. Prescription sent for apixaban to his pharmacy. I encouraged the patient to continue outpatient physical therapy. He should also continue his atorvastatin and aspirin 81 mg. 4. Hypertension. The patient was hypertensive during his stay. I recommend that he follow up with his primary care physician to continue to monitor his blood pressures and he should continue taking amlodipine at home, will likely require a secondary agent for additional control. DISCHARGE MEDICATIONS: Continued home medications: 1. Amlodipine besylate 10 mg p.o. daily. 2. Apixaban 5 mg p.o. b.i.d. 3. Atorvastatin 40 mg p.o. daily. 4. Colchicine 0.6 mg p.o. b.i.d. x14 days. 5. Glucosamine 1 capsule p.o. at bedtime. 6. PreserVision AREDS 2 capsules p.o. at bedtime. CONDITION UPON DISCHARGE: Guarded. DISPOSITION: AMA to home. TIME SPENT: Time spent on the patient was more than 30 minutes. Marilynn Newsome, COPY OPERATOR [id number]/[facility] #: [id number] SAMI
== END 2019-08-12 04:13 | disposition left against medical advice (07) ==
LOC: ED 12:23 → MEDTELE 16:35
PROVIDERS: ADMIT Internal Medicine; ATTEND Internal Medicine
DX: M10.9 Gout, unspecified (principal); R53.1 Weakness; I12.9 Hypertensive chronic kidney disease with stage 1 through stage 4 chronic kidney disease, or unspecified chronic kidney disease; N18.9 Chronic kidney disease, unspecified; I35.0 Nonrheumatic aortic (valve) stenosis; I48.91 Unspecified atrial fibrillation; I10 Essential (primary) hypertension; I25.10 Atherosclerotic heart disease of native coronary artery without angina pectoris; Z86.73 Personal history of transient ischemic attack (TIA), and cerebral infarction without residual deficits; I44.7 Left bundle-branch block, unspecified; I25.2 Old myocardial infarction; Z79.82 Long term (current) use of aspirin; E78.5 Hyperlipidemia, unspecified; E78.00 Pure hypercholesterolemia, unspecified
CPT/HCPCS: 36415; 70450; 80048; 80053; 81003; 81015; 83735; 84550; 85025; 86140; 87086; 99284; A9270-GY; G0378; G8978-GP-CL; G8979-GP-CI